=== PATIENT | male | born 1950 | race African-American/Black ===

== ENCOUNTER 2017-11-16 16:18 | Inpatient (IN) | payer MEDICARE, OTHER ==
[~2017-11-16] VITALS: Ht 88.9 cm; Wt 121.3 kg
[2017-11-16] VITALS (7 sets, daily range): BP systolic 129–150; BP diastolic 73–80; PULSE 85–126; RESP 22–35; TEMP 98.9–102.3; O2SAT 93–100
[2017-11-16] MEDS ORDERED: SILVER SULFADIAZINE 1% CR 400 GM JAR TOPICAL ONE (16:30)
[2017-11-16] MEDS ORDERED: SODIUM CHLOR 0.9% 1000 ML INJ 1,000 ML IV ONE ×3 (16:30→21:00)
[2017-11-16] MEDS ORDERED: ACETAMINOPHEN 650 MG SUPP RECTAL ONE (16:30)
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
--- NOTE | 2017-11-16 17:08 | RADRPT ---
EXAM DATE/TIME: 11/16/2017 16:39 [facility] COMPARISON: No previous studies available for comparison. INDICATIONS : Fever MEDICAL HISTORY : None. SURGICAL HISTORY : None. ENCOUNTER: Initial ACUITY: 1 day PAIN SCORE: Non-responsive. LOCATION: chest FINDINGS: Lungs are hypoaerated. There is mild patchy airspace disease in the lung bases especially on the left . Heart is at the upper limits of normal in size. Osseous structures appear intact. CONCLUSION: 1. Hypoaerated lungs. 2. Bibasilar airspace disease greater on the left. Tavo Delcid MD on November 16, 2017 at 17:05 Board Certified Radiologist. This report was verified electronically.
[2017-11-16 17:13] LABS: AUTOMATED NEUTROPHIL # 7.8 TH/MM3 (1.8-7.7); BASOPHIL % 0.3 % (0.0-2.0); EOSINOPHIL # 0.1 TH/MM3 (0-0.4); EOSINOPHIL % 0.6 % (0.0-4.0); HEMATOCRIT 45.9 % (39.0-51.0); HEMOGLOBIN 15.3 GM/DL (13.0-17.0); LYMPH % 24.8 % (9.0-44.0); LYMPHOCYTE # 2.8 TH/MM3 (1.0-4.8); MEAN CELL VOLUME 85.9 FL (80.0-100.0); MEAN CORPUSCULAR HEMOGLOBIN 28.6 PG (27.0-34.0); MEAN CORPUSCULAR HGB CONC 33.3 % (32.0-36.0); MEAN PLATELET VOLUME 11.3 FL (7.0-11.0); MONO % 6.2 % (0.0-8.0); MONOCYTE # 0.7 TH/MM3 (0-0.9); NEUT % 68.1 % (16.0-70.0); PLATELET COUNT 179 TH/MM3 (150-450); RED BLOOD COUNT 5.34 MIL/MM3 (4.50-5.90); RED CELL DISTRIBUTION WIDTH 14.3 % (11.6-17.2); WHITE BLOOD COUNT 11.4 TH/MM3 (4.0-11.0)
[2017-11-16 17:30] LABS: INTERNATIONAL NORMALIZED RATIO 1.1 RATIO; PROTHROMBIN TIME - PATIENT 10.7 SEC (9.8-11.6)
[2017-11-16 17:37] LABS: ALT (GPT) 26 U/L (12-78)
[2017-11-16 17:46] LABS: ALKALINE PHOSPHATASE 67 U/L (45-117); TOTAL BILIRUBIN ADULT 0.6 MG/DL (0.2-1.0); TOTAL PROTEIN 8.4 GM/DL (6.4-8.2); TROPONIN I 0.02 NG/ML (0.02-0.05)
--- NOTE | 2017-11-16 17:51 | RADRPT ---
EXAM DATE/TIME: 11/16/2017 17:33 [facility] COMPARISON: No previous studies available for comparison. INDICATIONS : Altered mental status. RADIATION DOSE: 66.34 CTDIvol (mGy) MEDICAL HISTORY : Non-responsive. SURGICAL HISTORY : Non-responsive. ENCOUNTER: Initial ACUITY: 1 day PAIN SCALE: Non-responsive LOCATION: cranial TECHNIQUE: Multiple contiguous axial images were obtained of the head. Using automated exposure control and adj ustment of the mA and/or kV according to patient size, radiation dose was kept as low as reasonably a chievable to obtain optimal diagnostic quality images. DICOM format image data is available electro nically for review and comparison. FINDINGS: CEREBRUM: The ventricles are enlarged.. No evidence of midline shift, mass lesion, hemorrhage or acute infarct ion. Significant hypodensity is seen throughout the cerebral white matter bilaterally. No extra-axia l fluid collections are seen. A 1.5 x 2.1 cm calcified mass is seen along the falx cerebri in the lef t parietal convexity. The noncalcified soft tissue component may be larger. POSTERIOR FOSSA: The cerebellum and brainstem are intact. The 4th ventricle is midline. The cerebellopontine angle i s unremarkable. EXTRACRANIAL: The visualized portion of the orbits is intact. SKULL: The calvaria is intact. No evidence of skull fracture. CONCLUSION: 1. Left-sided parafalcine calcified mass in the left parietal region may represent a moderate to larg e size meningioma. 2. Chronic white matter disease with central volume loss and mild enlargement of the ventricles. 3. No evidence of acute infarct, hemorrhage or edema. Tavo Delcid MD on November 16, 2017 at 17:44 Board Certified Radiologist. This report was verified electronically.
[2017-11-16 18:03] LABS: ALBUMIN 4.2 GM/DL (3.4-5.0); AST (GOT) 24 U/L (15-37); BICARBONATE 24.6 MEQ/L (21.0-32.0); BLOOD UREA NITROGEN 31 MG/DL (7-18); CHLORIDE 107 MEQ/L (98-107); CREATININE 2.35 MG/DL (0.60-1.30); GLOMERULAR FILTRATION RATE 24 ML/MIN (>89); GLUCOSE,RANDOM 93 MG/DL (74-106); SODIUM (NA) 142 MEQ/L (136-145)
[2017-11-16 23:34] LABS: BILIRUBIN, URINE NEG (NEG); BLOOD, URINE MOD (NEG); GLUCOSE,URINE NEG (NEG); KETONE, URINE NEG (NEG); MUCUS URINE FEW /lpf (OCC); NITRITE,URINE NEG (NEG); SQUAMOUS EPITHELIAL CELL URINE <1 /hpf (0-5); URINE COLOR YELLOW (YELLW/STRAW); URINE LEUKOCYTE ESTERASE NEG (NEG)
[2017-11-17] MEDS ORDERED: TETANUS/DIPHTHERIA TOXOID ADULT 0.5 ML VIAL IM ONE (00:15)
[2017-11-17] MEDS ORDERED: CEPHALEXIN MONOHYDRATE 500 MG CAP PO ONE (00:15)
[2017-11-17 00:29] LABS: CALCIUM 8.2 MG/DL (8.5-10.1); CREATININE 2.04 MG/DL (0.60-1.30)
[2017-11-17] MEDS ORDERED: ONDANSETRON HCL 4 MG/2 ML VIAL IVP PRN (00:30)
[2017-11-17] MEDS ORDERED: BISACODYL 10 MG SUPP RECTAL PRN (00:30)
[2017-11-17] MEDS ORDERED: SENNOSIDES 8.6 MG TAB PO PRN (00:30)
[2017-11-17] MEDS ORDERED: MAGNESIUM HYDROXIDE SUSP 30 ML CUP PO PRN (00:30)
[2017-11-17] MEDS ORDERED: ACETAMINOPHEN/HYDROcodone 325 MG/5 MG TAB PO PRN (00:30)
[2017-11-17] MEDS ORDERED: Vancomycin Consult Pharmacy 1 EA OTHER SCH (00:30)
[2017-11-17] MEDS ORDERED: ACETAMINOPHEN/HYDROcodone 325 MG/10 MG TAB PO PRN (00:30)
[2017-11-17] MEDS ORDERED: LACTULOSE SYRUP 20 GM/30 ML CUP PO PRN (00:30)
[2017-11-17] MEDS ORDERED: ACETAMINOPHEN 325 MG TAB PO PRN (00:30)
[2017-11-17] MEDS ORDERED: SODIUM CHLORIDE 0.9% FLUSH 10 ML FLUSH IV FLUSH PRN (00:30)
[2017-11-17] MEDS ORDERED: VANCOMYCIN 1,500 MG/NS 500 ML IV ONE ×2 (01:00)
[2017-11-17 03:00] VITALS: BP 128/68; PULSE 88; RESP 20; TEMP 98.7; O2SAT 100
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
[2017-11-17] MEDS: SODIUM CHLOR 0.9% 1000 ML INJ 1,000 ML IV SCH ×3 (05:06→18:20)
[2017-11-17] MEDS: DOCUSATE SODIUM 50 MG/SENNA 8.6 MG TAB PO SCH ×2 (08:51→21:29)
[2017-11-17] MEDS: SODIUM CHLORIDE 0.9% FLUSH 10 ML FLUSH IV FLUSH SCH ×2 (08:51→21:00)
[2017-11-17] MEDS ORDERED: LISI40TA PO (09:21)
[2017-11-17] MEDS ORDERED: hydrALAZINE HCL 20 MG/ML VIAL ONE (09:32)
[2017-11-17 09:33] VITALS: BP 231/140; PULSE 85; RESP 18; O2SAT 98
[2017-11-17] MEDS: CEFEPIME INJ 1,000 MG in SODIUM CHLORIDE 0.9% INJ 100 ML IV SCH ×2 (10:41→21:32)
[2017-11-17] MEDS ORDERED: hydrALAZINE HCL 20 MG/ML VIAL IV PUSH ONE (11:00)
[2017-11-17 11:02] VITALS: BP 160/90; PULSE 80; RESP 18; O2SAT 99
[2017-11-17 14:47] VITALS: BP 202/101; PULSE 72; RESP 18; O2SAT 100
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
[2017-11-17 17:37] VITALS: BP 168/74; PULSE 85; RESP 18; O2SAT 99
[2017-11-17] MEDS ORDERED: hydrALAZINE HCL 10 MG TAB PO PRN (18:15)
[2017-11-17 20:00] VITALS: BP 176/83; PULSE 69; PULSE 75; RESP 17; TEMP 98.2; O2SAT 95
[2017-11-17 20:46] LABS: BICARBONATE 25.2 MEQ/L (21.0-32.0); CALCIUM 8.5 MG/DL (8.5-10.1); CREATININE 1.88 MG/DL (0.60-1.30)
[2017-11-18] VITALS: BP 169/80; PULSE 78; RESP 19; TEMP 98.5; O2SAT 96
[2017-11-18] MEDS: VANCOMYCIN INJ 1,500 MG in SODIUM CHLORID 0.9% 500 ML INJ 500 ML IV SCH (00:44)
[2017-11-18 04:00] VITALS: BP 168/84; PULSE 71; PULSE 77; RESP 19; TEMP 98.5; O2SAT 98
[2017-11-18] MEDS: SODIUM CHLOR 0.9% 1000 ML INJ 1,000 ML IV SCH ×2 (06:25→16:42)
[2017-11-18 08:00] VITALS: BP 160/83; PULSE 54; PULSE 59; RESP 20; TEMP 98; O2SAT 98
[2017-11-18] MEDS: CEFEPIME INJ 1,000 MG in SODIUM CHLORIDE 0.9% INJ 100 ML IV SCH ×2 (09:00→21:13)
[2017-11-18] MEDS: SODIUM CHLORIDE 0.9% FLUSH 10 ML FLUSH IV FLUSH SCH ×2 (09:00→21:00)
--- NOTE | 2017-11-18 09:17 | EKG ---
Date Performed: 11/16/2017 Time Performed: 16:26:10 PTAGE: 89 years EKG: SUPRAVENTRICULAR TACHYCARDIA WITH FIRST DEGREE AV BLOCK MARKED LEFT AXIS DEVIATION MODERATE INTRAVENTRICULAR CONDUCTION DELAY ST DEVIATION AND MODERATE T-WAVE ABNORMALITY, CONSIDER LATERAL ISC HEMIA ABNORMAL ECG NO PREVIOUS TRACING DOCTOR: Lisseth Bravo Interpretating Date/Time 11/18/2017 09:12:23
[2017-11-18] MEDS: DOCUSATE SODIUM 50 MG/SENNA 8.6 MG TAB PO SCH ×2 (09:49→21:13)
[2017-11-18 12:00] VITALS: BP 165/89; PULSE 62; RESP 20; TEMP 98.7; O2SAT 99
[2017-11-18 12:13] LABS: AUTOMATED NEUTROPHIL # 10.6 TH/MM3 (1.8-7.7); BASOPHIL # 0.1 TH/MM3 (0-0.2); BASOPHIL % 0.5 % (0.0-2.0); EOSINOPHIL # 0.1 TH/MM3 (0-0.4); EOSINOPHIL % 0.5 % (0.0-4.0); HEMATOCRIT 40.8 % (39.0-51.0); HEMOGLOBIN 13.7 GM/DL (13.0-17.0); LYMPH % 14.7 % (9.0-44.0); LYMPHOCYTE # 2.1 TH/MM3 (1.0-4.8); MEAN CELL VOLUME 86.4 FL (80.0-100.0); MEAN CORPUSCULAR HGB CONC 33.5 % (32.0-36.0); MEAN PLATELET VOLUME 10.8 FL (7.0-11.0); MONOCYTE # 1.4 TH/MM3 (0-0.9); NEUT % 74.3 % (16.0-70.0); PLATELET COUNT 133 TH/MM3 (150-450); RED BLOOD COUNT 4.72 MIL/MM3 (4.50-5.90); RED CELL DISTRIBUTION WIDTH 14.7 % (11.6-17.2); WHITE BLOOD COUNT 14.2 TH/MM3 (4.0-11.0)
[2017-11-18 12:49] LABS: ALBUMIN 3.1 GM/DL (3.4-5.0); ALKALINE PHOSPHATASE 52 U/L (45-117); ALT (GPT) 25 U/L (12-78); AST (GOT) 34 U/L (15-37); BLOOD UREA NITROGEN 13 MG/DL (7-18); CALCIUM 8.6 MG/DL (8.5-10.1); CHLORIDE 106 MEQ/L (98-107); CREATININE 1.63 MG/DL (0.60-1.30); GLOMERULAR FILTRATION RATE 44 ML/MIN (>89); GLUCOSE,RANDOM 115 MG/DL (74-106); SODIUM (NA) 140 MEQ/L (136-145); TOTAL PROTEIN 6.8 GM/DL (6.4-8.2)
[2017-11-18 16:00] VITALS: BP 167/90; PULSE 67; PULSE 72; RESP 20; TEMP 98.8; O2SAT 97
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
[2017-11-18] MEDS ORDERED: POTASSIUM CHLORIDE 20 MEQ CONTROLLED RELEASE TAB PO ONE (16:15)
[2017-11-18] MEDS ORDERED: hydrALAZINE HCL 25 MG TAB PO PRN (16:15)
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
[2017-11-18] MEDS ORDERED: LISINOPRIL 20 MG TAB PO ONE (16:30)
[2017-11-18 20:00] VITALS: BP 147/87; PULSE 69; PULSE 83; RESP 18; TEMP 98.7; O2SAT 98
[2017-11-18] MEDS: HEPARIN SODIUM - SQ 10,000 UNITS/ML VIAL SQ SCH (21:13)
[2017-11-19] VITALS: BP 140/83; PULSE 63; PULSE 90; RESP 20; TEMP 97.7; O2SAT 98
[2017-11-19] MEDS: VANCOMYCIN INJ 1,500 MG in SODIUM CHLORID 0.9% 500 ML INJ 500 ML IV SCH (00:43)
[2017-11-19] MEDS: SODIUM CHLOR 0.9% 1000 ML INJ 1,000 ML IV SCH ×2 (02:00→14:28)
[2017-11-19 04:00] VITALS: BP 151/84; PULSE 58; PULSE 67; RESP 20; TEMP 97.9; O2SAT 99
[2017-11-19] MEDS: HEPARIN SODIUM - SQ 10,000 UNITS/ML VIAL SQ SCH ×2 (06:12→14:27)
[2017-11-19 08:00] VITALS: BP 142/85; PULSE 61; PULSE 86; RESP 20; TEMP 98.1; O2SAT 96
[2017-11-19] MEDS: SODIUM CHLORIDE 0.9% FLUSH 10 ML FLUSH IV FLUSH SCH (09:00)
[2017-11-19] MEDS ORDERED: LISINOPRIL 20 MG TAB PO SCH (09:00)
[2017-11-19 09:16] LABS: AUTOMATED NEUTROPHIL # 8.9 TH/MM3 (1.8-7.7); BASOPHIL % 0.4 % (0.0-2.0); EOSINOPHIL # 0.2 TH/MM3 (0-0.4); EOSINOPHIL % 1.2 % (0.0-4.0); HEMATOCRIT 41.4 % (39.0-51.0); HEMOGLOBIN 13.9 GM/DL (13.0-17.0); LYMPH % 16.2 % (9.0-44.0); MEAN CELL VOLUME 86.2 FL (80.0-100.0); MEAN CORPUSCULAR HGB CONC 33.6 % (32.0-36.0); MEAN PLATELET VOLUME 10.7 FL (7.0-11.0); MONO % 8.9 % (0.0-8.0); MONOCYTE # 1.1 TH/MM3 (0-0.9); NEUT % 73.3 % (16.0-70.0); PLATELET COUNT 139 TH/MM3 (150-450); RED BLOOD COUNT 4.81 MIL/MM3 (4.50-5.90); RED CELL DISTRIBUTION WIDTH 14.3 % (11.6-17.2); WHITE BLOOD COUNT 12.2 TH/MM3 (4.0-11.0)
[2017-11-19] MEDS: DOCUSATE SODIUM 50 MG/SENNA 8.6 MG TAB PO SCH (09:29)
[2017-11-19] MEDS: CEFEPIME INJ 1,000 MG in SODIUM CHLORIDE 0.9% INJ 100 ML IV SCH (09:31)
[2017-11-19 09:50] LABS: BICARBONATE 29.2 MEQ/L (21.0-32.0); CALCIUM 8.9 MG/DL (8.5-10.1); CREATININE 1.57 MG/DL (0.60-1.30); MAGNESIUM 1.9 MG/DL (1.5-2.5)
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
[2017-11-19] MEDS ORDERED: SILV1CRE20 TOPICAL (11:55)
[2017-11-19] MEDS ORDERED: BACT800T5 PO (11:56)
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
[2017-11-19 12:00] VITALS: BP 147/80; PULSE 63; PULSE 69; RESP 20; TEMP 98.5; O2SAT 96
[2017-11-19] MEDS ORDERED: DIPHTH/TETANUS/ACEL PERTUSSIS (BOOSTER) 0.5 ML VIAL/PFS IM ONE (12:00)
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
[2017-11-20] MEDS ORDERED: PHARMACY ORDERED LAB ONE (00:45)
== END 2017-11-19 16:28 | disposition home health service (06) | DRG 871 ==
LOC: NEPC 16:18 → EDBD 11-17 00:19 → NEDA 11-17 00:19 → NEDH 11-17 04:29 → N04A 11-17 18:03
PROVIDERS: ADMIT Family Medicine; ATTEND Family Medicine
DX: A41.9 Sepsis, unspecified organism (principal); G93.40 Encephalopathy, unspecified; N17.9 Acute kidney failure, unspecified; M62.82 Rhabdomyolysis; T67.0XXA Heatstroke and sunstroke, initial encounter; X30.XXXA Exposure to excessive natural heat, initial encounter; L55.9 Sunburn, unspecified; G93.9 Disorder of brain, unspecified; E66.9 Obesity, unspecified; E87.6 Hypokalemia; E78.5 Hyperlipidemia, unspecified; I10 Essential (primary) hypertension; T22.012A Burn of unspecified degree of left forearm, initial encounter; T22.011A Burn of unspecified degree of right forearm, initial encounter; T24.022A Burn of unspecified degree of left knee, initial encounter; T24.021A Burn of unspecified degree of right knee, initial encounter; X19.XXXA Contact with other heat and hot substances, initial encounter; V00.811A Fall from moving wheelchair (powered), initial encounter; Y92.481 Parking lot as the place of occurrence of the external cause
CPT/HCPCS: 16025; 70450; 71045; 80048; 80053; 81001; 82140; 82550; 82552; 83605; 83735; 84443; 84484; 85025; 85610; 85730; 87040; 90714; 90715; 93005; 96360; 96361; J0360; J0692; J1644; J3370; J7030; J7040